=== PATIENT | female | born 1975 | race Caucasian/White ===

== ENCOUNTER → 2018-04-20 | Outpatient (REF) ==
[2018-04-20 12:03] LABS: RUBELLA IgG QUALITATIVE IMMUNE (IMMUNE)
[2018-04-24 00:06] LABS: QuantiFERON-TB Gold Plus Negative (Negative)
== END ==
LOC: M LAB 10:33
DX: Z00.00 Encounter for general adult medical examination without abnormal findings (principal)

== ENCOUNTER → 2018-05-19 | Outpatient (CLI) | payer OTHER ==
--- NOTE | 2018-05-19 19:13 | REP ---
Left long finger series: Four views. History: Injury. Jamming injury 2 weeks ago. Findings: Lateral view shows a subtle cortical irregularity at the volar aspect of the base of the middle phalanx at the PIP joint consistent with volar plate avulsion chip fracture. This is not seen on any other view. This should be correlated with area of tenderness to palpation. There is lack of complete extension at the DIP joint on these views. Is in question of extensor tendon dysfunction. There is soft tissue swelling. Impression: Possible volar plate avulsion chip fracture at the base of the middle phalanx at the PIP joint. Soft tissue swelling. Lack of complete extension at the DIP joint. Question extensor tendon dysfunction. Electronically Signed by Montana Hidalgo MD 05/19/2018 07:57 P
== END ==
LOC: M LRY 18:03
PROVIDERS: ATTEND Physician Assistant
DX: S62.651A Nondisplaced fracture of middle phalanx of left index finger, initial encounter for closed fracture (principal); M79.89 Other specified soft tissue disorders; X58.XXXA Exposure to other specified factors, initial encounter; Y92.9 Unspecified place or not applicable

== ENCOUNTER → 2018-06-15 | Outpatient (CLI) | payer OTHER ==
--- NOTE | 2018-06-16 10:13 | REP ---
MRI STUDY LEFT HAND AND FINGERS. HISTORY: Mallet finger. Pain and swelling left long finger. Possible volar plate injury PIP joint. Comparison radiographs May 19, 2018. TECHNIQUE: Axial, coronal and sagittal T1- and T2-weighted scans were obtained with and without fat saturation. MRI FINDINGS: On sagittal images, there is a subtle cortical irregularity at the base of the middle phalanx at the PIP joint. There is no discernible adjacent marrow edema to suggest that this is acute. This is felt to be an old injury or conceivably developmental exostosis. The flexor tendon overlying this appears intact. There is no evidence to suggest recent fracture. The extensor tendon mechanism is more difficult to evaluate. Proton density SPAIR sequence demonstrates dorsal soft tissue swelling along the extensor tendon over the middle phalanx of the long finger as it approaches the DIP joint. In addition to the swelling, there is some attenuation of the extensor tendon. The swelling is absent from the dorsal aspect of the other digits. The extensor tendon at the other digits on sagittal images with this sequence is actually less well seen. No significant joint effusion is seen. IMPRESSION: Swelling along the extensor tendon over the dorsal aspect of the middle phalanx of the long finger with attenuation of the extensor tendon mechanism on sagittal T2-weighted scans and proton density weighted scans. No stevenson discontinuity can be visualized. Old appearing bony irregularity at the volar plate aspect at the base of the middle phalanx at the PIP joint. No acute fracture seen. Electronically Signed by Montana Hidalgo MD 06/16/2018 10:47 A
== END ==
LOC: M RAD 14:45
PROVIDERS: ATTEND Orthopaedic Surgery Sports Medicine
DX: M20.012 Mallet finger of left finger(s) (principal); M79.89 Other specified soft tissue disorders

== ENCOUNTER 2018-08-29 20:50 | Emergency (ER) | payer OTHER ==
[2018-08-29] MEDS ORDERED: VENL50TA2 (21:13)
[2018-08-29] MEDS ORDERED: LEVO88TA3 (21:13)
[2018-08-29] MEDS ORDERED: SERT-155 (21:13)
[2018-08-29] MEDS ORDERED: TIZA4CAP (21:13)
[2018-08-29] MEDS ORDERED: HYDR-3363 (21:13)
[2018-08-29] MEDS ORDERED: CITA20TA7 (21:13)
[2018-08-29] MEDS ORDERED: LOSARTAN/HCT (21:13)
[2018-08-29] MEDS ORDERED: ADACEL/BOOSTRIX VACCINE (DIPHTH/PERTUSS/ACELL/TETANUS)0.5ML SYR (90715) IM ONE (21:45)
[2018-08-29] MEDS ORDERED: AUGM875T28 PO (21:54)
[2018-08-29] MEDS ORDERED: AUGMENTIN 875 MG TAB PO ONE (22:00)
[2018-08-29 22:44] VITALS: BP 144/79
== END 2018-08-29 22:50 | disposition home or self-care (01) ==
LOC: M ED 20:50
DX: S71.151A Open bite, right thigh, initial encounter (principal); W54.0XXA Bitten by dog, initial encounter; Y92.099 Unspecified place in other non-institutional residence as the place of occurrence of the external cause; Y93.89 Activity, other specified; Y99.9 Unspecified external cause status; I10 Essential (primary) hypertension; F41.9 Anxiety disorder, unspecified; F32.9 Major depressive disorder, single episode, unspecified; Z79.899 Other long term (current) drug therapy; Z88.6 Allergy status to analgesic agent; Z88.5 Allergy status to narcotic agent